=== PATIENT | male | born 1950 | race Caucasian/White ===

== ENCOUNTER 2021-07-03 10:49 | Emergency (ER) | payer OTHER, BC, SELFPAY ==
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
[2021-07-03 10:56] VITALS: BP 157/122; PULSE 94; RESP 16; TEMP 36.4; O2SAT 96
--- NOTE | 2021-07-03 12:01 | PC.NURSE ---
upon arrival to room would not change until voided. No change in appearance since triage.
--- NOTE | 2021-07-03 12:02 | PC.NURSE ---
provider with pt., technical advisor waiting at door for pt.
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
[2021-07-03 12:53] VITALS: BP 140/94; PULSE 84; RESP 22
--- NOTE | 2021-07-03 12:57 | PC.NURSE ---
pt. to xray before could give meds
[2021-07-03] MEDS: ACETAMINOPHEN 500 MG TABLET 1000 MG PO (13:22)
[2021-07-03] MEDS: IBUPROFEN 400 MG TABLET 800 MG PO (13:22)
[2021-07-03] MEDS: TETANUS,DIPHTHERIA,AC PERTUSSIS ADULT (0.5 ML) BOOSTRIX IM (13:48)
[2021-07-03 14:13] LABS: Anion Gap 8 mmol/L (8-16); Blood Urea Nitrogen 18 mg/dL (9-20); Calcium 8.6 mg/dL (8.4-10.2); Carbon Dioxide 27 mmol/L (22-30); Chloride 102 mmol/L (98-107); Estimated CRCL calculation 62 ml/min; Estimated Glomerular Filt Rate > 60; Glucose 105 mg/dL (65-110); Potassium 4.3 mmol/L (3.4-5.0); Sodium 137 mmol/L (137-145)
[2021-07-03] MEDS: methocarbamoL 500 MG TABLET PO (15:20)
[2021-07-03 15:23] VITALS: BP 162/99; PULSE 71; RESP 18; O2SAT 96
== END 2021-07-03 15:27 | disposition home or self-care (01) ==
PROVIDERS: Physician Assistant; Emergency Provider Emergency Medicine; PCP Family Medicine Adolescent Medicine
DX: S09.90XA Unspecified injury of head, initial encounter (principal); S51.812A Laceration without foreign body of left forearm, initial encounter; S19.9XXA Unspecified injury of neck, initial encounter; Z23 Encounter for immunization; K21.9 Gastro-esophageal reflux disease without esophagitis; I10 Essential (primary) hypertension; M17.12 Unilateral primary osteoarthritis, left knee; E78.00 Pure hypercholesterolemia, unspecified; V43.52XA Car driver injured in collision with other type car in traffic accident, initial encounter
CPT/HCPCS: 36415; 70450; 72125; 73010; 73090; 74177; 80048; 90471; 90715; 99284; A9270; L0140; Q9967

== ENCOUNTER → 2022-01-23 08:28 | Outpatient (CLI) | payer BC, SELFPAY ==
--- NOTE | ~2022-01-23 | MR_ITS ---
EXAMINATION: MR knee LT wo con DATE: 01/23/2022 09:07 INDICATION: Left knee pain TECHNIQUE: Magnetic resonance imaging (MRI) of the left knee was performed without intravenous contra st. Sequences included coronal PD-weighted FSE, coronal PD-weighted FS FSE, sagittal T2-weighted FSE , sagittal PD-weighted FS FSE and axial PD weighted fat saturated FSE. COMPARISON: None. FINDINGS: Medial compartment: Complex tear of the body and posterior horn of the medial meniscus. The posterior horn appears small relative to the anterior horn suggesting loss of meniscal tissue which could be due to either prior p artial meniscectomy, degeneration or displacement. 3 hypointense loose bodies the largest measuring 1 2 x 5 mm, 7 x 5 mm and 6 x 4 mm which could represent loose meniscal fragments and which are located in the recess posterior to the posterior horn of the medial meniscus. Deep chondral ulceration with u nderlying subarticular edema-like are signal changes along large portions of the medial tibial platea u and along the weightbearing medial femoral condyle where there are also a few small subarticular cy stlike changes. Lateral compartment: Longitudinal horizontal tear extending to the inferior articular surface at the body of the lateral m eniscus. Fluoroscopy signal change of the cartilage at the medial side of the lateral tibial plateau suggesting a mild partial-thickness fissure. Cartilage in the lateral compartment is otherwise normal . Patellofemoral compartment: Patellar articular cartilage is normal. Deep chondral fissuring with underlying cortical irregularity and edema-like signal change at the trochlear groove and immediately adjacent medial side of the lat eral trochlea. Ligaments and tendons: Anterior and posterior cruciate ligaments are normal. The medial collateral ligament and fibular larissa ateral ligament complex are normal. The extensor mechanism is normal. The visualized medial and later al hamstring tendons as well as the iliotibial band are normal. Fluid: Small left knee joint effusion with mild synovitis at the suprapatellar pouch. Large Foster's cyst francisco j suring 8.0 x 3.0 x 4.4 cm. Osseous/other: Normal marrow signal aside from the previous noted subarticular edema-like signal changes. No fractur e or pathologic marrow replacing process. Prominent subcutaneous varicosities anterior to the proxima l tibia. IMPRESSION: 1. Complex medial meniscal tear. 2. Tricompartmental osteoarthritis, severe with extensive high-grade chondral malacia in the medial c ompartment, mild in the patellofemoral compartment with additional high-grade trochlear chondral jeffrey yaa and minimal in the lateral compartment with possible small region of moderate grade chondromalaci a at the lateral tibial plateau. 3. Large Foster's cyst and small left knee joint effusion. Reviewed, dictated and finalized at location B. 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 Complex medial meniscal tear. 2. Tricompartmental osteoarthritis, severe with extensive high-grade chondral m alacia in the medial compartment, mild in the patellofemoral compartment with a dditional high-grade trochlear chondral malacia and minimal in the lateral comp artment with possible small region of moderate grade chondromalacia at the late ral tibial plateau. 3. Large Foster's cyst and small left knee joint effusion.
== END ==
PROVIDERS: PCP Family Medicine Adolescent Medicine; Visit Provider Orthopaedic Surgery
DX: M17.12 Unilateral primary osteoarthritis, left knee (principal); S83.232A Complex tear of medial meniscus, current injury, left knee, initial encounter; X58.XXXA Exposure to other specified factors, initial encounter; M71.22 Synovial cyst of popliteal space [Baker], left knee; M25.462 Effusion, left knee
CPT/HCPCS: 73721

== ENCOUNTER 2023-01-28 07:54 | Outpatient (CLI) | payer BC, SELFPAY ==
--- NOTE | 2023-01-28 08:40 | ECG_ITS ---
Measurements Intervals [place] Rate: 57 P: 37 KS: 180 QRS: -31 QRSD: 112 T: 14 QT: 414 QTc: 404 Interpretive Statements SINUS BRADYCARDIA LEFT AXIS DEVIATION INCOMPLETE RIGHT BUNDLE BRANCH BLOCK POOR R WAVE PROGRESSION, ANTERIOR LEADS BORDERLINE T WAVE ABNORMALITY- INFERIOR LEADS BASELINE ARTIFACT- I, II, III, AVR, AVL BORDERLINE ECG NO PREVIOUS ECG AVAILABLE FOR COMPARISON Electronically Signed On 01-28-2023 9:26:[address] by Marvin Blanton D.O.
[2023-01-28 09:34] LABS: Basophils Absolute Auto 0.1 K/mm3 (0.0-0.1); Eosinophils Absolute Auto 0.6 K/mm3 (0-0.3); Eosinophils Percent Auto 7.3 % (0-4.4); Hematocrit 51.3 % (42.0-52.0); Hemoglobin 17.1 g/dL (14.0-18.0); Immature Granulocyte Absolute 0.02 K/mm3 (0.00-0.031); Immature Granulocyte Percent A 0.3 % (0-0.5); Lymphocytes Absolute Auto 2.73 K/mm3 (0.9-3.2); Lymphocytes Percent Auto 34.1 % (18.3-44.2); Mean Corpuscular HGB Conc 33.3 g/dl (32-36); Mean Corpuscular Hemoglobin 32.8 pg (26-34); Mean Corpuscular Volume 98.3 fl (80-100); Mean Platelet Volume 10.4 fl (7.4-10.4); Monocytes Percent Auto 12.8 % (2.6-8.5); Neutrophils Absolute Auto 3.6 K/mm3 (1.3-6.7); Neutrophils Percent Auto 44.5 % (45.5-73.1); Platelet Count Result 228 k/mm3 (150-375); Red Blood Count 5.22 M/mm3 (4.6-6.20); Red Cell Distribution Width 12.7 % (11.5-14.5)
[2023-01-28 09:43] LABS: Urine Cotinine NEGATIVE
[2023-01-28 09:43] LABS: Hemoglobin A1C 5.5 % (<5.7)
[2023-01-28 09:49] LABS: Albumin Level 4.6 g/dL (3.5-5.1); Estimated Glomerular Filt Rate > 60; Glucose 103 mg/dL (65-110)
== END 2023-01-28 07:55 | disposition home or self-care (01) ==
LOC: ANHSURGERY 07:58
PROVIDERS: PCP Family Medicine Adolescent Medicine; Visit Provider Orthopaedic Surgery
DX: M17.12 Unilateral primary osteoarthritis, left knee (principal); Z01.818 Encounter for other preprocedural examination; I45.10 Unspecified right bundle-branch block
CPT/HCPCS: 80307; 82040; 82565; 82947; 83036; 85025; 86850; 86900; 86901; 87081; 93005

== ENCOUNTER 2023-02-04 01:43 | Day surgery (SDC) | payer BC, SELFPAY ==
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
[2023-01-28 08:16] VITALS: BP 162/90; PULSE 62; RESP 20; TEMP 36.6; O2SAT 97; BMI 30.3
[2023-02-04] VITALS (15 sets, daily range): BP systolic 123–167; BP diastolic 57–101; PULSE 67–100; RESP 10–25; TEMP 36.3–37; O2SAT 95–100
--- NOTE | ~2023-02-04 | XR_ITS ---
EXAMINATION: XR_[id number]_CR DATE: 02/04/2023 13:25 SENIOR OPERATIONS MANAGER INDICATION: Left total knee arthroplasty TECHNIQUE: 2 views left knee FINDINGS: There is a left total knee arthroplasty in expected position. Subcutaneous gas with fluid and air in the joint are consistent with recent surgery. No evidence of periprosthetic fracture. IMPRESSION: 1. Recent left total knee arthroplasty. Reviewed, dictated and finalized at location B. OR OPERATIONS MANAGER
--- NOTE | 2023-02-04 09:27 | WPDHPUPDATE1 ---
History and Physical Update Update Date/Time: 02/04/23 09:27 History and Physical has been reviewed, including an updated exam of the patient. There are NO changes in the patient's condition. Risks, benefits, and alternatives have been discussed and questions answered. Patient agrees to proceed with procedure.
--- NOTE | 2023-02-04 09:28 | WPDHPUPDATE1 ---
History and Physical Update Update Date/Time: 02/04/23 09:28 History and Physical has been reviewed, including an updated exam of the patient. There are NO changes in the patient's condition. Risks, benefits, and alternatives have been discussed and questions answered. Patient agrees to proceed with procedure.
[2023-02-04] MEDS: ACETAMINOPHEN 500 MG TABLET 1000 MG PO (09:49)
[2023-02-04] MEDS: TRANEXAMIC ACID 1,000MG/ISO100 1,000 MG/100 ML BAG 200 MG IVPB (09:49)
[2023-02-04] MEDS: LACTATED RINGERS 1,000 ML 30 ML IV CONT ×3 (09:50→13:54)
--- NOTE | 2023-02-04 09:55 | WPDANESEPPF ---
Anes - Initial Pre Proc Eval Procedure: Operation Date: 02/04/23 10:30 Proposed Procedures p Left Total Knee Arthroplasty - Luis Fernando Heredia MD Date/Time: 02/04/23 09:55 Surgeon: Luis Fernando Heredia MD Pre Op Diagnosis: oa left knee Patient Data Age: 72 Gender: M Height: 1.68 m Weight: 85.2 kg Last Vital Signs Temp 36.6 C 01/28/23 08:16 Pulse 62 01/28/23 08:16 Resp 20 01/28/23 08:16 BP 162/90 H 01/28/23 08:16 Pulse Ox 97 01/28/23 08:16 O2 Del Method Room Air 01/28/23 08:16 Allergies Allergy/AdvReac Type Severity Reaction Status Date / Time No Known Allergies Allergy Mild Verified 02/04/23 09:42 Home Medications Medication Instructions Recorded Confirmed Type enalapril maleate 20 mg tablet See Rx Instructions .Route 06/12/22 02/04/23 Rx .COMPLEX #90 tabs ezetimibe 10 mg tablet See Rx Instructions .Route 11/04/22 02/04/23 Rx .COMPLEX #90 tabs dexlansoprazole 60 mg 60 mg PO DAILY 01/28/23 02/04/23 History capsule,biphase delayed release (Dexilant) rivaroxaban 10 mg tablet (Xarelto) 10 mg PO DAILY PE prophylaxis s/p 01/30/23 02/04/23 Rx surgery 14 days #14 tabs Patient hx anesthesia problems: none Family hx anesthesia problems: none Results Review: All pre-operative results and documents have been reviewed as part of the pre-operative evaluation. [facility] Past Medical History Medical History (Updated 01/30/23 @ 09:33 by Luis Fernando Heredia MD) Arthritis of left knee Erectile dysfunction GERD (gastroesophageal reflux disease) Helicobacter pylori (H. pylori) Hernia History of Mohs micrographic surgery for skin cancer Hypertension Pure hypercholesterolemia, unspecified Rosacea Surgical History Surgical History History of appendectomy 2007 History of inguinal hernia repair Hx of cholecystectomy Family History Family History Mother Hypertension Cancer Pancreatic adenocarcinoma Father Acute myocardial infarction Cancer Cerebrovascular accident Heart disease Hypertension Son Asthma Social History Social History Smoking status: Never smoker Second hand tobacco smoke exposure: No Additional smoking assessment comments: PT DENIES ALL FORMS OF TOBACCO USE Alcohol intake: current Drinks per week: 2 Alcohol use details: STATES CUTTING BACK PAST YEAR FROM 14/WEEK Substance use: never Substance use type: does not use Lack of Transportation: No Lack of Food: Never True Current Housing: I Have Housing Concerned About Future Housing: No Difficulty Paying Gas/Electric Bills: No Difficulty Paying for Meds: No Currently Unemployed: No Education: Master's Degree or Higher Difficulty w/ Childcare or Family Care: No Living arrangements: alone Occupation/Education: occupation 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 Gender identity (if verbalized by the patient): Male Sexual Orientation (if Verbalized by the Patient): Straight or Heterosexual Spiritual care concerns: No Agree to blood products: Yes Anes - Eval Final PreProcedure Day of Procedure 02/04/23 09:55 Patient weight: obese Heart: regular rate and rhythm Lungs: clear to auscultation Airway: Mallampati scale class II Neurological: alert and oriented Last oral intake: >/= 8 hours ASA classification: III Emergent: no Anesthetic plan: proceed Anesthesia type and monitoring: general LMA and standard monitoring Results Review: All pre-operative results and documents have been reviewed as part of the pre-operative evaluation. Informed Consent: The patient's anesthetic plan and its attendant risks and benefits were discussed with the patient/family/POA. Questions were solicited and answers provided to the satisfaction of the patient/family/POA.
--- NOTE | 2023-02-04 09:59 | WPDANESPNB ---
Anes - Peripheral Nerve Block Date/Time: 02/04/23 09:59 I have discussed with the patient/family/POA the placement of a peripheral nerve block for post-operative pain management, including associated risks, benefits, complications, and side effects. Alternative methods of post-operative analgesia were detailed. Questions were solicited and answers provided to the satisfaction of the patient/family/POA. Time-Out: A pre-procedural Time-Out was completed immediately before starting the procedure and confirmed: Patient Identification, Site, Procedure, Patient Position and the Availability of Requisite Equipment. Clinical Indications: Acute post-operative pain management requested by the operative surgeon. Nerve Block Insertion Note Anes-nerve block: adductor canal left Patient position: supine Skin prep: chlorhexidine Needle: 22 gauge, stimulating, insulated echogenic needle. Needle length: 80 mm Technique: ultrasound Injectate: bupivacaine 0.5% with epi 5 mcg/ml (30cc - no epi) Observations: tolerated well Complications: none Procedure start time:: 958 Procedure end time:: 1001
[2023-02-04] MEDS: ceFAZolin 2 GM/D5W 50 ML 2 GM/50 ML BAG IVPB ×2 (10:14→18:03)
[2023-02-04] MEDS: GENTAMICIN BONE CEMENT REFOBACIN 1 EACH TOPICAL (10:58)
[2023-02-04] MEDS: ceFAZolin SODIUM 1 GM VIAL IV PUSH (12:02)
--- NOTE | 2023-02-04 12:51 | P.OP_ITS ---
Procedure Note - Detailed Date of Procedure 02/04/23 Pre-op Diagnosis oa left knee Post-op Diagnosis Same Procedure Performed Left total knee replacement Surgeon Luis Fernando Heredia MD Street Openings Inspector [facility] Anesthesia General and Regional Description of Procedure The patient was identified and proper site identified. In the preop holding area the anesthesia team performed a left-sided sub sartorial block after which the patient was taken to the operating room and transferred to the OR table po sitioning supine taking care to pad the torso and extremities. After general anesthetic induction and intubation a nonsterile tourniquet was placed high on the left thigh. The left lower extremity was prepped and draped in the usual sterile fashion. The extremity was exsanguinated and with the knee flexed tourniquet was inflated to 300 mmHg remaining up for approximately 80 minutes. An anterior midline incision was made and a modified medial parapatellar approach was used. Infra and suprapatellar fat pads were excised. Patella was resected leaving 15 mm thickness and prepared for the 32 round three peg component. Using the intramedullary guide the distal femur was cut in the proper orientation for the size seven femoral component. Using the extramedullary guide the tibia was cut perpendicular to the long axis protecting collateral ligaments and popliteal structures. It was sized to a seven M. Flexion and extension gaps were balanced. Trial reduction was undertaken and the weight-bearing line was noted to passed through the center of the joint. Proximal tibia was drilled and punched in the proper orientation for the real component. Trial components were removed. The bone surfaces were washed with pulsatile lavage and dried. The real components were cemented simultaneously. The knee was held in extension and the patella held clamped until the cement had cured. Excess cement was removed from the joint. After trialing it was determined that the 12 mm insert gave full range of motion from 0-120 degrees of flexion and the patella tracked in the femoral groove with no lift-off. After final lavage the joint the real 12 insert was secured. A Betadine and saline wash was placed into the wound and allowed to sit for approximately 3 minutes and then evacuated. Periarticular tissues were infiltrated with 60 cc of the arthroplasty solution. Surgicel powder was applied into the wound during the closure. The extensor mechanism was repaired with #2 Vicryl suture and 0 looped PDS suture. Subcu was reapproximated with 3-0 Monocryl, 0 Stratafix and tissue adhesive for the skin. A sterile dressing was applied. He tolerated the procedure well, was awakened and extubated, transferred to the bed and was taken to recovery area in stable condition. There were no known intraoperative complications. Perioperative antibiotics were administered. Estimated Blood Loss 150 Tourniquet Time 80 Drains No Packing No Pathology None sent Complications No immediate complications Condition Stable Disposition PACU [facility] Billing Surgery - Charge Forward: Surgery Billing ([id number])
[2023-02-04] MEDS: fentaNYL CITRATE INJ (*CRX) 100 MCG/2 ML VIAL 25 MCG IV PUSH ×8 (13:16→13:41)
[2023-02-04] MEDS: HYDROmorphone HCL INJ (*CRX) 1 MG/ML SYR 0.5 MG IV PUSH ×6 (13:45→14:43)
[2023-02-04] MEDS: KETOROLAC 15 MG/ML VIAL (*BKC) IV PUSH ×2 (14:15→18:03)
--- NOTE | 2023-02-04 15:00 | ADMGEN ---
This patient, Miguel Roman, was admitted to Medical Room 254-01. Patient/family oriented to hospital policies and general routines including ID bracelet, bed and alarms, visiting hours, pain management, procedures, bathroom and other care routines, personal items, smoking policy, room service/diet, and visiting hours. Information on how to activate the Rapid Response Team has been discussed. Patient/Family are encouraged to report perceived risks to care and to ask questions if they do not understand what they are told or what they should do.
[2023-02-04] MEDS: oxyCODONE/ACETAMINOPHEN (*CRX) 5-325 MG TABLET 1 TABLET PO ×2 (15:26→20:22)
[2023-02-04] MEDS: ENALAPRIL MALEATE 10 MG TABLET BY MOUTH (15:26)
[2023-02-04] MEDS: SENNA/DOCUSATE SODIUM TABLET 2 TAB PO (18:03)
[2023-02-04] MEDS: EZETIMIBE 10 MG TABLET BY MOUTH (18:03)
[2023-02-04] MEDS: FAMOTIDINE 20 MG TABLET PO (20:22)
[2023-02-04] MEDS: oxyCODONE HCL (*CRX) 5 MG TAB IR PO (21:15)
[2023-02-04] MEDS: MORPHINE SULFATE (*CRX) 4 MG/ML INJ 3 MG IV PUSH (22:51)
[2023-02-05] MEDS: oxyCODONE/ACETAMINOPHEN (*CRX) 5-325 MG TABLET 1 TABLET PO ×3 (00:44→08:44)
[2023-02-05] MEDS: KETOROLAC 15 MG/ML VIAL (*BKC) IV PUSH ×2 (00:44→05:01)
[2023-02-05 00:45] VITALS: BP 132/82; PULSE 82; RESP 17; TEMP 36.9; O2SAT 96
[2023-02-05] MEDS: ceFAZolin 2 GM/D5W 50 ML 2 GM/50 ML BAG IVPB ×2 (01:02→10:45)
[2023-02-05 04:39] VITALS: BP 147/90; PULSE 72; RESP 16; TEMP 36.7; O2SAT 99
[2023-02-05] MEDS: oxyCODONE HCL (*CRX) 5 MG TAB IR PO (05:11)
--- NOTE | 2023-02-05 07:48 | PM.DS ---
DS: Admitting Diagnosis Discharge Date February 05, 2023 Admitting Diagnosis Osteoarthritis left knee DS: Discharge Diagnosis Discharge Diagnosis (1) History of total left knee replacement: Onset Date: 01/2023 Code(s): Z96.652 - Presence of left artificial knee joint Status: Acute Plan 72-year-old male one day status post left total knee replacement. Had pain control issues last night but is doing much better today and is wanting to go home. Will be discharged after therapy visits this morning. Surgery discussed in detail with him. Follow-up will be with me in the office in two weeks but was instructed to call with any questions prior. Will do outpatient therapy on his own this we can start formal therapy next week. Has a CPM that he acquired and is going to use that as well. DS: Summary Hospital Course Hospital Course: Following the patient's total knee replacement on February 04, 2023 he was admitted for observation, pain control and to initiate therapy. Had trouble with pain control initially but is doing much better this morning. Moving around comfortably in his room with a walker this morning. Status at Discharge Functional status at discharge: uses cane/walker Overall status at discharge: patient is not back to baseline Time Spent with Patient Time attestation: Total time spent providing and/or coordinating discharge services: Exam Const: General: cooperative, no acute distress and alert Orientation/consciousness: patient oriented x3 HENMT: Head: normal to inspection Resp: Effort & Inspection: normal respiratory effort and able to speak in complete sentences GI: Inspection: other (Nondistended) Neuro: General: patient oriented x3 Cognition (Neuro): normal cognition Speech: normal speech Gait exam (Neuro): Other gait observations present (Walking well with a walker this a.m.) Extrem: Other: Exam of left knee shows full extension achieved actively. Incision dry. Mild swelling and minimal bruising appreciated. Psych: Appearance: grossly normal Mental Status: mental status grossly normal Radiology Reports: Comments: EXAMINATION: [id number]_[id number]_CR DATE: 02/04/2023 13:25 MIS DIRECTOR INDICATION: Left total knee arthroplasty TECHNIQUE: 2 views left knee FINDINGS: There is a left total knee arthroplasty in expected position.? Subcutaneous gas with fluid and air in the joint are consistent with recent surgery. No evidence of periprosthetic fracture. IMPRESSION: 1.? Recent left total knee arthroplasty. Reviewed, dictated and finalized at location B. DIRECTOR Discharge Plan Discharge Patient Disposition: Home, Self-Care Discharge Instructions: 3 times daily for 20 minutes each time, reclining in bed with ice packs over the incision and a pillow underneath the calf of the affected leg, not under the knee. Your wound is glued so it is okay to remove the dressing, get into the shower and get the wound wet in two days. Be sure to read through all the information that came from a my office and the hospital. Most of the answers you will need can be found that material. Call the office with any questions that you cannot find answers to, or concerns you may have. After the Xarelto is completed, start taking one coated 325 mg aspirin daily and do this for four more weeks. Please call [facility] at as soon as possible to arrange for/verify your follow-up appointment to be seen in 2 weeks. Also, call the office with any orthopedic/surgical related questions prior to follow-up. Be sure to get up and move around several times daily but do not overdo it. Take the arthritis formula Tylenol 650 mg tablet on an 8 hour schedule. A good 8 hour schedule is: 6:00 a.m., 2:00 p.m., 10:00 p.m. you may take the prescribed pain medication along with the Tylenol; it
[2023-02-05] MEDS: EZETIMIBE 10 MG TABLET BY MOUTH (08:47)
[2023-02-05] MEDS: RIVAROXABAN 10 MG TABLET PO (08:47)
[2023-02-05] MEDS: SENNA/DOCUSATE SODIUM TABLET 2 TAB PO (08:47)
[2023-02-05] MEDS: polyethylene glycoL 3350 17 GM POWD.PACK PO (08:47)
[2023-02-05] MEDS: PANTOPRAZOLE 40 MG TABLET PO (08:47)
[2023-02-05] MEDS: FAMOTIDINE 20 MG TABLET PO (08:47)
[2023-02-05] MEDS: ENALAPRIL MALEATE 10 MG TABLET BY MOUTH (08:50)
--- NOTE | 2023-02-05 09:20 | WPDANESPN ---
Anes - Prog Note Post-Op Date/Time: 02/05/23 09:20 Cardiovascular status: normal Respiratory status: normal Airway patency: baseline Mental status: baseline Post-Op hydration status: normal Vital Signs: Last Vital Signs Temp 36.7 C 02/05/23 04:39 Pulse 72 02/05/23 04:39 Resp 16 02/05/23 04:39 BP 147/90 H 02/05/23 04:39 Pulse Ox 99 02/05/23 04:39 O2 Del Method Room Air 02/05/23 08:06 O2 Flow Rate 2 02/04/23 14:45 Pain Score (VAS): 10 I/O: Intake & Output 02/04/23 02/05/23 02/05/23 23:59 07:59 15:59 Intake Total 290 500 Output Total 300 Balance 290 200 Post-procedural complaints: other (Patient states severe pain last night in recovery, but states pain is under control this morning) Patient Feedback: Patient satisfied with anesthetic care.
[2023-02-05 09:35] VITALS: BP 114/68; PULSE 66; RESP 16; TEMP 36.4; O2SAT 97
== END 2023-02-05 11:15 | disposition home or self-care (01) ==
LOC: ANHSURGERY 12:46 → ANH2MED 15:01
PROVIDERS: PCP Family Medicine Adolescent Medicine; Visit Provider Orthopaedic Surgery
PROC: (CPT 27447; principal; 2023-02-04 10:30)
DX: M17.12 Unilateral primary osteoarthritis, left knee (principal); K21.9 Gastro-esophageal reflux disease without esophagitis; I10 Essential (primary) hypertension; E78.00 Pure hypercholesterolemia, unspecified; G89.18 Other acute postprocedural pain; E66.9 Obesity, unspecified; Z68.30 Body mass index [BMI] 30.0-30.9, adult; Z79.01 Long term (current) use of anticoagulants; Z90.49 Acquired absence of other specified parts of digestive tract; Z85.828 Personal history of other malignant neoplasm of skin; Z80.0 Family history of malignant neoplasm of digestive organs; Z82.49 Family history of ischemic heart disease and other diseases of the circulatory system
CPT/HCPCS: 64447; 27447; 73560; 97110; 97161; 97165; 97530; 97535; A9270; C1713; J0171; J0690; J1100; J1170; J1885; J2250; J2270; J2405; J2704; J2795; J3010; J7120

== ENCOUNTER 2023-02-06 14:39 | Outpatient (CLI) | payer BC, SELFPAY ==
--- NOTE | ~2023-02-06 | US_ITS ---
EXAMINATION: US venous doppler [facility] DATE: 02/06/2023 15:45 INDICATION: PAIN IN LEFT LEG, OTHER SPECIFIED SOFT TISSUE DISORDERS . TECHNIQUE: Grayscale images without and with compression and Doppler images of the left lower extremi ty veins were obtained. COMPARISON: 04/28/2018; MR knee 01/23/2022 FINDINGS: The left common femoral vein, profunda (deep) femoral vein, femoral vein, popliteal vein, peroneal v ein, posterior tibial veins, gastrocnemius vein, and greater saphenous vein are patent. Foster's cyst with heterogeneous internal echogenicity but no increased peripheral vascular flow. IMPRESSION: Patent left lower extremity veins. No evidence of deep venous thrombosis. Reviewed, dictated and finalized at location K. ERING MACHINE OPERATOR
== END 2023-02-06 14:40 | disposition home or self-care (01) ==
PROVIDERS: PCP Family Medicine Adolescent Medicine; Visit Provider Orthopaedic Surgery
DX: M79.662 Pain in left lower leg (principal)
CPT/HCPCS: 93971

== ENCOUNTER 2023-02-09 12:17 | Inpatient (IN) | payer BC, SELFPAY ==
[2023-02-09] VITALS (10 sets, daily range): BP systolic 138–164; BP diastolic 75–88; PULSE 68–80; RESP 16–20; TEMP 36.3–36.6; O2SAT 95–100; BMI 29.9
--- NOTE | 2023-02-09 13:07 | ED.LOWEXIN ---
HPI - Extremity Injury (Lower) General Chief Complaint: Recheck/Abnormal Lab/Rx Stated Complaint: L knee pain s/p surgery Time Seen by Provider: 02/09/23 13:03 Source: patient Limitations: physical limitation History of Present Illness HPI Narrative: This is a 72 yo male who presents POD #5 from left knee arthroplasty. He has had persistent pain in this extremity. He did not go home on the same day of surgery but rather did spend overnight for persistent pain. He states the nerve block performed during surgery did not provide relief but he was able to ambulate POD #1 after receiving morphine. However, upon arriving home pain has not improved. He had been taking 5mg oxy q4 hours and this was switched to Tapentadol/Nucynta 2.5mg which he took for 2.5 days, ending last night. He denies any fever but he has felt hot and cold. No falls. He has been in contact multiple times with Dr Heredia/Yan's office and underwent DVT study recently which was reported as negative. He is on Xarelto 10mg daily. He has a follow up appointment 02/19/23. He has been trying to ambulate but it is painful. Has been elevating extremity above heart and applying ice. No paresthesias. He initially had some bloody discharge at the surgical site but denies any purulent discharge. Related Data Home Medications Medication Instructions Recorded Confirmed esomeprazole magnesium 40 mg 40 mg PO DAILY 02/09/23 02/09/23 capsule,delayed release Allergies Allergy/AdvReac Type Severity Reaction Status Date / Time No Known Allergies Allergy Mild Verified 02/09/23 12:39 [facility] Past Medical History Medical History (Updated 02/10/23 @ 11:20 by Denise Mccauley MD) Dyslipidemia Erectile dysfunction Gastroesophageal reflux disease Helicobacter pylori (H. pylori) Hypertension Rosacea Surgical History Surgical History (Updated 02/10/23 @ 11:20 by Denise Mccauley MD) History of appendectomy 2007 History of cholecystectomy History of inguinal hernia repair History of Mohs micrographic surgery for skin cancer History of total left knee replacement (01/2023) February 04, 2023 Family History Family History Mother Hypertension Cancer Pancreatic adenocarcinoma Father Acute myocardial infarction Cancer Cerebrovascular accident Heart disease Hypertension Son Asthma Social History Social History (Updated 02/09/23 @ 21:43 by Sabi Castro PA-C) Social History: Surrogate medical decision maker: Juan Roman, son. Code status: Full code. 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 HEAD: Normocephalic, atraumatic. EYES: Non injected or icteric. ENT: Nares clear, no rhinorrhea or epistaxis. NECK: Supple. CHEST: Speaking in full sentences. No respiratory distress. HEART: Regular rate and rhythm. Normal peripheral pulses with palpable DP and cap refill in left foot. ABDOMEN: Soft, nondistended, EXTREMITIES: Left leg edema throughout though in particular at the knee and spreading distally and proximally. Well-healing surgical scar along anterior surface. Blanching erythema throughout though particularly across anterior surface. Pain with passive and active range
[2023-02-09] MEDS: fentaNYL CITRATE INJ (*CRX) 100 MCG/2 ML VIAL 50 MCG IV PUSH (14:15)
[2023-02-09 14:25] LABS: Basophils Absolute Auto 0.1 K/mm3 (0.0-0.1); Basophils Percent Auto 0.6 % (0.2-1.2); Eosinophils Absolute Auto 0.4 K/mm3 (0-0.3); Eosinophils Percent Auto 4.2 % (0-4.4); Hematocrit 32.7 % (42.0-52.0); Hemoglobin 10.7 g/dL (14.0-18.0); Immature Granulocyte Absolute 0.13 K/mm3 (0.00-0.031); Immature Granulocyte Percent A 1.3 % (0-0.5); Lymphocytes Absolute Auto 2.06 K/mm3 (0.9-3.2); Lymphocytes Percent Auto 20.1 % (18.3-44.2); Mean Corpuscular HGB Conc 32.7 g/dl (32-36); Mean Corpuscular Hemoglobin 32.7 pg (26-34); Mean Platelet Volume 9.9 fl (7.4-10.4); Monocytes Absolute Auto 1.7 K/mm3 (0.1-0.6); Monocytes Percent Auto 16.6 % (2.6-8.5); Neutrophils Absolute Auto 5.9 K/mm3 (1.3-6.7); Neutrophils Percent Auto 57.2 % (45.5-73.1); Platelet Count Result 261 k/mm3 (150-375); Red Blood Count 3.27 M/mm3 (4.6-6.20); Red Cell Distribution Width 13.1 % (11.5-14.5); White Blood Count 10.2 K/mm3 (4.5-10.0)
[2023-02-09 14:41] LABS: Alanine Aminotransferase 29 U/L (6-50); Albumin Level 3.7 g/dL (3.5-5.1); Alkaline Phosphatase 78 U/L (38-126); Anion Gap 9 mmol/L (8-16); Aspartate Amino Transferase 27 U/L (17-59); Bilirubin,Total 1.1 mg/dL (0.2-1.3); Blood Urea Nitrogen 19 mg/dL (9-20); CRP 8.3 mg/dL (<1.0); Calcium 8.8 mg/dL (8.4-10.2); Carbon Dioxide 24 mmol/L (22-30); Chloride 104 mmol/L (98-107); Estimated CRCL calculation 66 ml/min; Estimated Glomerular Filt Rate > 60; Glucose 112 mg/dL (65-110); INR 1.3; Potassium 4.2 mmol/L (3.4-5.0); Prothrombin Time 17.2 Seconds (11.1-14.7); Sodium 137 mmol/L (137-145)
[2023-02-09 14:42] LABS: Partial Thromboplastin Time 43.5 SECONDS (22.3-36.8)
[2023-02-09 15:01] LABS: Erythrocyte Sedimentation Rate > 140 mm/hr (0-20)
[2023-02-09] MEDS: ACETAMINOPHEN 500 MG TABLET 1000 MG PO (15:49)
[2023-02-09 15:53] LABS: Appearance Urine Clear (Clear); Bacteria Urine None Seen /hpf; Bilirubin Urine Negative (Negative); Blood Urine Negative (Negative); Color Urine Dark Yellow (Yellow); Glucose Urine UA Negative (Negative); Ketones Urine Negative (Negative); Leukocyte Esterase Ur Negative LEU/UL (Negative); Nitrate Urine Negative (Negative); Non Pathogenic Casts 0-2; Protein Urine Trace mg/dL (Negative); RBC Urine 0-2 /hpf (0-2); Squamous Epithelial Cell Urine None seen /hpf (Few); WBC Urine 0-5 /hpf; pH Urine 6.5 (5.0-9.0)
[2023-02-09 16:06] LABS: Add Urine Microscopic? YES
--- NOTE | 2023-02-09 16:31 | PM.IMHP ---
H&P: HPI History of Present Illness Date/Time: 02/09/23 16:31 Chief Complaint: Left knee pain Narrative: 72-year-old male who is 12 days status post left total knee replacement. He has developed a postoperative hematoma and is quite uncomfortable with this. He is going to be admitted for pain control and then washout of the hematoma after being off of Xarelto for more than 48 hours. He had pretty significant pain control issues starting immediately after the surgery in the recovery room. He appears to have a resistance to narcotics. Review of Systems Constitutional: Constitutional: Reports difficulty sleeping (Secondary to pain in the left knee) Eyes: Eyes: Denies change in vision and Denies loss of vision ENT: Reports Normal hearing present and Denies throat swelling Cardiovascular: Cardiovascular: Denies chest pain and Denies lightheadedness Respiratory: Respiratory: Reports no additional respiratory complaints and Denies cough Gastrointestinal: Gastrointestinal: Reports no additional gastrointestinal complaints and Denies abdominal pain Musculoskeletal: Musculoskeletal: Reports as per HPI Integumentary/Breasts: Skin/Breast: Denies non-healing lesions Neurologic: Reports system reviewed and no additional complaints, except as documented, Reports Normal hearing present, Denies behavioral changes and Denies loss of vision Psychiatric: Psychiatric: Denies behavioral changes Endocrine: Endocrine: Denies change in body appearance Hematologic/Lymphatic: Hematologic/Lymphatic: Denies easy bleeding Allergic/Immunologic: Allergic/Immunologic: Denies urticaria and Denies throat swelling PMFSH Past Medical History Medical History (Updated 02/09/23 @ 16:36 by Luis Fernando Heredia MD) Erectile dysfunction GERD (gastroesophageal reflux disease) Helicobacter pylori (H. pylori) Hernia History of Mohs micrographic surgery for skin cancer Hypertension Postoperative hematoma Pure hypercholesterolemia, unspecified Rosacea Surgical History Surgical History History of appendectomy 2007 History of inguinal hernia repair History of total left knee replacement (01/2023) February 04, 2023 Hx of cholecystectomy Family History Family History Mother Hypertension Cancer Pancreatic adenocarcinoma Father Acute myocardial infarction Cancer Cerebrovascular accident Heart disease Hypertension Son Asthma Social History Social History Smoking status: Never smoker Second hand tobacco smoke exposure: No Additional smoking assessment comments: PT DENIES ALL FORMS OF TOBACCO USE Alcohol intake: current Drinks per week: 2 Alcohol use details: STATES CUTTING BACK PAST YEAR FROM 14/WEEK Substance use: never Substance use type: does not use Lack of Transportation: No Lack of Food: Never True Current Housing: I Have Housing Concerned About Future Housing: No Difficulty Paying Gas/Electric Bills: No Difficulty Paying for Meds: No Currently Unemployed: No Education: Master's Degree or Higher Difficulty w/ Childcare or Family Care: No Living arrangements: alone Occupation/Education: occupation 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
[2023-02-09] MEDS: MORPHINE SULFATE (*CRX) 2 MG/ML INJ IV PUSH ×2 (17:01→20:51)
[2023-02-09] MEDS: DOCUSATE SODIUM 100 MG CAPSULE PO (17:26)
--- NOTE | 2023-02-09 17:43 | PC.NURSE ---
This patient, Miguel Roman, was admitted to Medical Room 341-01. Patient/family oriented to hospital policies and general routines including ID bracelet, bed and alarms, visiting hours, pain management, procedures, bathroom and other care routines, personal items, smoking policy, room service/diet, and visiting hours. Information on how to activate the Rapid Response Team has been discussed. Patient/Family are encouraged to report perceived risks to care and to ask questions if they do not understand what they are told or what they should do.
--- NOTE | 2023-02-09 19:33 | WPDCN ---
Assessment and Plan Assessment and plan (1) Postoperative hematoma: Qualifiers: Procedure type: musculoskeletal Surgical complication system/body Area: musculoskeletal system Qualified Code(s): M96.840 - Postprocedural hematoma of a musculoskeletal structure following a musculoskeletal system procedure Status: Acute Assessment and Plan: Patient is 12 days postop status post left total knee replacement. Xarelto on hold for 48 hours prior to washout. ESR and ESR are high though he is afebrile. Watch for development of fever; consider empiric antibiotics. Management per Dr. Heredia. (2) Normocytic anemia: Code(s): D64.9 - Anemia, unspecified Status: Acute Assessment and Plan: Hemoglobin today 10.7, down from 17.1 on 01/28/2023. Due to a combination of blood loss from surgery and hematoma. Xarelto on hold in anticipation of surgery. Continue to trend. (3) Hypertension: Code(s): I10 - Essential (primary) hypertension Status: Acute Assessment and Plan: Blood pressures were reviewed and they are stable. Continue enalapril 20 mg daily. (4) Gastroesophageal reflux disease: Code(s): K21.9 - Gastro-esophageal reflux disease without esophagitis Status: Acute Assessment and Plan: No acute issues. Continue PPI. Plan Thank you for allowing us to participate in this patient's care. Please do not hesitate to contact us with any questions. HPI Data of Consult Date/Time: 02/09/23 19:30 Requesting Physician: Dr. Luis Fernando Heredia MD Consult Narrative Reason for consult: Medical management Narrative: This is a 72-year-old male who was admitted through the emergency department today for painful postoperative hematoma of the left knee whom the hospitalist service has been consulted for help managing his medical conditions. His medical history is significant for hypertension, dyslipidemia, GERD, and arthritis. He is 12 days status post left total knee replacement per Dr. Heredia and he has been on rivaroxaban for DVT prophylaxis. He reports having difficulties controlling his pain following surgery and within a couple of days he noticed swelling and significant bruising on the posterior aspect of his thigh and into the prepatellar region. The area is very painful even at rest but is much worse with movement and weight-bearing. He denies paresthesias, numbness, tingling of the left leg. No significant calf pain. He denies syncope, syncope, chest pain, pleuritic pain, and shortness of breath. He also denies fever, chills, and sweats. His vital signs have been stable since arrival. Labs were significant for a WBC count of 10.2, hemoglobin 10.7, ESR greater than 140, CRP 8.3. He has developed a postoperative hematoma and he is being admitted for pain control and washout of the hematoma. Review of Systems Review of Systems: Twelve systems were reviewed and are negative except for as per HPI. [facility], [facility] Past Medical History Medical History (Updated 02/09/23 @ 21:43 by Sabi Castro PA-C) Dyslipidemia Erectile dysfunction Gastroesophageal reflux disease Helicobacter pylori (H. pylori) Hypertension Rosacea Surgical History Surgical History (Updated 02/09/23 @ 21:42 by Sabi Castro PA-C) History of appendectomy 2007 History of cholecystectomy History of inguinal hernia repair History of Mohs micrographic surgery for skin cancer History of total left knee replacement (01/2023) February 04, 2023 Family History Family History Mother Hypertension Cancer Pancreatic adenocarcinoma Father Acute myocardial infarction Cancer Cerebrovascular accident Heart disease Hypertension Son Asthma Social History Social History (Updated 02/09/23 @ 21:43 by Sabi Castro PA-C) Social History: Surrogate medical decision maker: Juan Roman, son. Code status
[2023-02-09] MEDS: HYDROcodone/acetaminophen (*CRX) 5-325 MG TABLET 1 TAB PO (22:22)
[2023-02-09] MEDS: HYDROmorphone HCL INJ (*CRX) 1 MG/ML SYR IV PUSH (23:14)
[2023-02-10] MEDS: oxyCODONE HCL (*CRX) 5 MG TAB IR PO ×4 (00:12→20:43)
[2023-02-10 01:00] LABS: Procalcitonin 0.1 ng/mL
[2023-02-10] MEDS: HYDROmorphone HCL INJ (*CRX) 1 MG/ML SYR 0.5 MG IV PUSH ×5 (02:23→20:42)
[2023-02-10 06:20] LABS: Hematocrit 32.5 % (42.0-52.0); Hemoglobin 10.4 g/dL (14.0-18.0); Mean Corpuscular Hemoglobin 32.1 pg (26-34); Mean Corpuscular Volume 100.3 fl (80-100); Mean Platelet Volume 9.8 fl (7.4-10.4); Platelet Count Result 266 k/mm3 (150-375); Red Blood Count 3.24 M/mm3 (4.6-6.20); Red Cell Distribution Width 13.2 % (11.5-14.5); White Blood Count 9.8 K/mm3 (4.5-10.0)
[2023-02-10 06:25] VITALS: BP 150/83; PULSE 74; RESP 18; TEMP 36.7; O2SAT 100
[2023-02-10] MEDS: ENOXAPARIN 30 MG/0.3 ML SYRINGE SUB-Q (07:45)
[2023-02-10] MEDS: DOCUSATE SODIUM 100 MG CAPSULE PO ×2 (07:45→17:21)
[2023-02-10] MEDS: EZETIMIBE 10 MG TABLET BY MOUTH (07:45)
[2023-02-10] MEDS: ENALAPRIL MALEATE 10 MG TABLET BY MOUTH (07:45)
[2023-02-10] MEDS: PANTOPRAZOLE 40 MG TABLET PO (07:49)
--- NOTE | 2023-02-10 09:06 | PM.IMPN ---
Progress Note: A&P Assessment and Plan (1) Postoperative hematoma: Qualifiers: Procedure type: musculoskeletal Surgical complication system/body Area: musculoskeletal system Qualified Code(s): M96.840 - Postprocedural hematoma of a musculoskeletal structure following a musculoskeletal system procedure Status: Acute Assessment and Plan: Patient is 12 days postop status post left total knee replacement. Xarelto on hold for 48 hours prior to washout. ESR and ESR are high though he is afebrile. Watch for development of fever; consider empiric antibiotics. Management per Dr. Heredia. 02/10: Stable. Hemoglobin is 10.4 today. Currently on multimodal pain control regimen with [place], Oxy, and p.r.n. Dilaudid for breakthrough pain. Patient states that the pain is better controlled than when he 1st presented but still significant. Will add on senna and MiraLax for bowel regimen. (2) Normocytic anemia: Code(s): D64.9 - Anemia, unspecified Status: Acute Assessment and Plan: Hemoglobin today 10.7, down from 17.1 on 01/28/2023. Due to a combination of blood loss from surgery and hematoma. Xarelto on hold in anticipation of surgery. Continue to trend. (3) Hypertension: Code(s): I10 - Essential (primary) hypertension Status: Acute Assessment and Plan: Blood pressures were reviewed and they are stable. Continue enalapril 20 mg daily. 02/10: Blood pressures reviewed and they are stable. (4) Gastroesophageal reflux disease: Code(s): K21.9 - Gastro-esophageal reflux disease without esophagitis Status: Acute Assessment and Plan: No acute issues. Continue PPI. Plan Thank you for allowing us to participate in this patient's care. Please do not hesitate to contact us with any questions. Subjective Date/time seen: 02/10/23 09:06 Interval history: HPI obtained from the chart, This is a 72-year-old male who was admitted through the emergency department today for painful postoperative hematoma of the left knee whom the hospitalist service has been consulted for help managing his medical conditions. His medical history is significant for hypertension, dyslipidemia, GERD, and arthritis. He is 12 days status post left total knee replacement per Dr. Heredia and he has been on rivaroxaban for DVT prophylaxis. He reports having difficulties controlling his pain following surgery and within a couple of days he noticed swelling and significant bruising on the posterior aspect of his thigh and into the prepatellar region. The area is very painful even at rest but is much worse with movement and weight-bearing. He denies paresthesias, numbness, tingling of the left leg. No significant calf pain. He denies syncope, syncope, chest pain, pleuritic pain, and shortness of breath. He also denies fever, chills, and sweats. His vital signs have been stable since arrival. Labs were significant for a WBC count of 10.2, hemoglobin 10.7, ESR greater than 140, CRP 8.3. He has developed a postoperative hematoma and he is being admitted for pain control and washout of the hematoma. 02/10: Patient is seen resting in bed. He does not appear in acute distress. His only complaint is that he has continuous pain to his left knee despite adjustments in pain medications. Although he does say that the pain is better with the new regimen of Oxy, [place], and p.r.n. Dilaudid. He has good sensation to bilateral lower extremities is able to move his toes freely. He also states that he has not had a bowel movement for couple of days. Will add on senna and MiraLax today. He is supposed to go for surgery tomorrow pending OR availability. Review of Systems Review of Systems: Twelve systems were reviewed and are negative except for as per HPI. All systems reviewed & are unremarkable except as noted in HPI and below Exam Narrative: General: well appearing, well developed, well
--- NOTE | 2023-02-10 09:10 | PM.PNORT ---
Progress Note: A&P Assessment and Plan (1) Postoperative hematoma: Qualifiers: Surgical complication system/body Area: musculoskeletal system Procedure type: musculoskeletal Qualified Code(s): M96.840 - Postprocedural hematoma of a musculoskeletal structure following a musculoskeletal system procedure Status: Acute (2) History of total left knee replacement: Onset Date: 01/2023 Code(s): Z96.652 - Presence of left artificial knee joint Status: Acute Plan Plan on proceeding with evacuation of hematoma and wound closure tomorrow. Discussed again fully with the patient. We will need to come up with a good outpatient pain regimen for him although I think once the hematoma as out his comfort level will increase significantly. Subjective Subjective Date/Time Seen: 02/10/23 09:10 Interval history: 72-year-old male with a postop hematoma left knee. Plan on going to surgery tomorrow at some point for washout. Pain management issues noted overnight. Appears conversational and comfortable this morning. Exam Const: General: cooperative and no acute distress Resp: Effort & Inspection: normal respiratory effort GI: Inspection: non-distended Extrem: Other: Left knee swollen and bruised. Incision dry. Neurovascular status unremarkable left lower extremity. Calf nontender. Psych: Mental Status: mental status grossly normal Affect: normal affect Objective Data Vital Signs Vital Signs: Vital Signs - 24 hr 02/09/23 12:20 02/09/23 12:31 02/09/23 14:17 Temperature 98 F Pulse Rate 79 79 69 Respiratory Rate 18 17 20 Blood Pressure 150/75 H 151/76 H 162/86 H Pulse Oximetry 98 98 99 Oxygen Delivery Room Air 02/09/23 15:39 02/09/23 15:50 02/09/23 17:04 Temperature Pulse Rate 74 80 76 Respiratory Rate 16 17 17 Blood Pressure 157/78 H 141/83 H 147/88 H Pulse Oximetry 97 100 100 Oxygen Delivery 02/09/23 17:23 02/09/23 18:00 02/09/23 20:00 Temperature 97.4 F L Pulse Rate 77 70 Respiratory Rate 18 18 Blood Pressure 152/87 H 164/82 H Pulse Oximetry 96 100 Oxygen Delivery Room Air 02/09/23 21:25 02/09/23 23:14 02/10/23 06:25 Temperature 97.8 F 97.7 F 98.0 F Pulse Rate 72 68 74 Respiratory Rate 18 18 18 Blood Pressure 156/80 H 138/78 150/83 H Pulse Oximetry 100 95 100 Oxygen Delivery 02/10/23 07:45 Temperature Pulse Rate Respiratory Rate Blood Pressure Pulse Oximetry Oxygen Delivery Room Air Intake/Output Intake/Output: Intake & Output 02/07/23 02/08/23 02/09/23 02/10/23 23:59 23:59 23:59 23:59 Output Total 200 / 200 700 / 700 Balance -200 / -200 -700 / -700 Meds/Results Medications: Active Medications Generic Name Dose Route Start Last Admin Trade Name Freq PRN Reason Stop Dose Admin Acetaminophen 650 mg 02/09/23 16:42 Acetaminophen 325 Mg Tablet PO Q4H PRN Mild Pain (1-3) or Fever Hydrocodone Bitart/Acetaminophen 1 tab 02/09/23 16:42 02/09/23 22:22 Hydrocodone/Acetaminophen (*Crx) 5-325 Mg Tablet PO 1 tab Q4H PRN Administration Moderate Pain (4-6) Bisacodyl 5 mg 02/09/23 16:42 Bisacodyl 5 Mg Tablet Ec PO DAILY PRN Constipation Docusate Sodium 100 mg 02/09/23 17:00 02/10/23 07:45 Docusate Sodium 100 Mg Capsule PO 100 mg BID SILVERIO Administration Ezetimibe 10 mg 02/10/23 09:00 02/10/23 07:45 Ezetimibe 10 Mg Tablet BY MOUTH 10 mg DAILY SILVERIO Administration Enalapril Maleate 10 mg 02/10/23 09:00 02/10/23 07:45 Enalapril Maleate 10 Mg Tablet BY MOUTH 10 mg DAILY SILVERIO Administration Enoxaparin Sodium 30 mg 02/10/23 09:00 02/10/23 07:45 Enoxaparin 30 Mg/0.3 Ml Syringe SUB-Q 02/11/23 08:59 30 mg DAILY SILVERIO Administration Hydromorphone HCl 0.5 mg 02/09/23 23:05 02/10/23 07:45 Hydromorphone Hcl Inj (*Crx) 1 Mg/Ml Syr IV PUSH 0.5 mg Q3H PRN Administration Breakthrough Pain Ondansetron HCl 4 mg 02/09/23 16
[2023-02-10] MEDS: HYDROcodone/acetaminophen (*CRX) 5-325 MG TABLET 1 TAB PO (10:46)
[2023-02-10] MEDS: polyethylene glycoL 3350 17 GM POWD.PACK PO (10:47)
[2023-02-10 15:01] VITALS: BP 130/75; PULSE 73; RESP 16; TEMP 36.4; O2SAT 100
[2023-02-10 19:45] VITALS: BP 127/69; PULSE 81; RESP 18; TEMP 37.2; O2SAT 98
[2023-02-10] MEDS: SENNOSIDES 8.6 MG TABLET PO (20:43)
[2023-02-11] VITALS (12 sets, daily range): BP systolic 141–189; BP diastolic 68–102; PULSE 84–103; RESP 10–20; TEMP 36.3–37.4; O2SAT 93–100
--- NOTE | 2023-02-11 00:07 | PC.NURSE ---
Went to give pain medication as requested. Pt stated I was the most unpleasant nurse hes ever met.
[2023-02-11] MEDS: HYDROmorphone HCL INJ (*CRX) 1 MG/ML SYR 0.5 MG IV PUSH ×4 (05:30→12:13)
[2023-02-11] MEDS: oxyCODONE HCL (*CRX) 5 MG TAB IR PO (05:30)
--- NOTE | 2023-02-11 05:34 | PC.NURSE ---
I took pt his scheduled and PRN med. He was still hateful when I went in said I made him suffer in pain all night. When I gave him his last dose of PRN I told hiwot at that time when his next dose of PRN was due as well as his scheduled.
[2023-02-11 05:58] LABS: Basophils Absolute Auto 0.1 K/mm3 (0.0-0.1); Basophils Percent Auto 0.8 % (0.2-1.2); Eosinophils Absolute Auto 0.4 K/mm3 (0-0.3); Eosinophils Percent Auto 3.7 % (0-4.4); Hematocrit 32.3 % (42.0-52.0); Hemoglobin 10.5 g/dL (14.0-18.0); Immature Granulocyte Absolute 0.18 K/mm3 (0.00-0.031); Immature Granulocyte Percent A 1.8 % (0-0.5); Lymphocytes Absolute Auto 1.87 K/mm3 (0.9-3.2); Lymphocytes Percent Auto 18.9 % (18.3-44.2); Mean Corpuscular HGB Conc 32.5 g/dl (32-36); Mean Corpuscular Hemoglobin 32.4 pg (26-34); Mean Corpuscular Volume 99.7 fl (80-100); Mean Platelet Volume 9.4 fl (7.4-10.4); Monocytes Absolute Auto 1.7 K/mm3 (0.1-0.6); Monocytes Percent Auto 16.8 % (2.6-8.5); Neutrophils Absolute Auto 5.7 K/mm3 (1.3-6.7); Platelet Count Result 322 k/mm3 (150-375); Red Blood Count 3.24 M/mm3 (4.6-6.20); Red Cell Distribution Width 13.2 % (11.5-14.5); White Blood Count 9.9 K/mm3 (4.5-10.0)
[2023-02-11 06:31] LABS: Alanine Aminotransferase 57 U/L (6-50); Albumin Level 3.7 g/dL (3.5-5.1); Alkaline Phosphatase 95 U/L (38-126); Anion Gap 8 mmol/L (8-16); Aspartate Amino Transferase 51 U/L (17-59); Bilirubin,Total 1.4 mg/dL (0.2-1.3); Blood Urea Nitrogen 18 mg/dL (9-20); Calcium 8.6 mg/dL (8.4-10.2); Carbon Dioxide 27 mmol/L (22-30); Chloride 100 mmol/L (98-107); Estimated CRCL calculation 74 ml/min; Estimated Glomerular Filt Rate > 60; Glucose 123 mg/dL (65-110); Potassium 4.2 mmol/L (3.4-5.0); Sodium 135 mmol/L (137-145)
--- NOTE | 2023-02-11 11:21 | PM.IMPN ---
Progress Note: A&P Assessment and Plan (1) Postoperative hematoma: Qualifiers: Surgical complication system/body Area: musculoskeletal system Procedure type: musculoskeletal Qualified Code(s): M96.840 - Postprocedural hematoma of a musculoskeletal structure following a musculoskeletal system procedure Status: Acute Assessment and Plan: Patient is 12 days postop status post left total knee replacement. Xarelto on hold for 48 hours prior to washout. ESR and ESR are high though he is afebrile. Watch for development of fever; consider empiric antibiotics. Management per Dr. Heredia. 02/10: Stable. Hemoglobin is 10.4 today. Currently on multimodal pain control regimen with [place], Oxy, and p.r.n. Dilaudid for breakthrough pain. Patient states that the pain is better controlled than when he 1st presented but still significant. Will add on senna and MiraLax for bowel regimen. 02/11: To OR today for hematoma evacuation per Dr. Heredia (2) Normocytic anemia: Code(s): D64.9 - Anemia, unspecified Status: Acute Assessment and Plan: Hemoglobin today 10.7, down from 17.1 on 01/28/2023. Due to a combination of blood loss from surgery and hematoma. Xarelto on hold in anticipation of surgery. Continue to trend. (3) Hypertension: Code(s): I10 - Essential (primary) hypertension Status: Acute Assessment and Plan: Blood pressures were reviewed and they are stable. Continue enalapril 20 mg daily. 02/11: Blood pressures reviewed and they are stable. (4) Gastroesophageal reflux disease: Code(s): K21.9 - Gastro-esophageal reflux disease without esophagitis Status: Acute Assessment and Plan: No acute issues. Continue PPI. Plan Thank you for allowing us to participate in this patient's care. Please do not hesitate to contact us with any questions. Time Spent With Patient Time with patient: 15 - 25 minutes Subjective Date/time seen: 02/11/23 11:21 Interval history: HPI obtained from the chart, This is a 72-year-old male who was admitted through the emergency department today for painful postoperative hematoma of the left knee whom the hospitalist service has been consulted for help managing his medical conditions. His medical history is significant for hypertension, dyslipidemia, GERD, and arthritis. He is 12 days status post left total knee replacement per Dr. Heredia and he has been on rivaroxaban for DVT prophylaxis. He reports having difficulties controlling his pain following surgery and within a couple of days he noticed swelling and significant bruising on the posterior aspect of his thigh and into the prepatellar region. The area is very painful even at rest but is much worse with movement and weight-bearing. He denies paresthesias, numbness, tingling of the left leg. No significant calf pain. He denies syncope, syncope, chest pain, pleuritic pain, and shortness of breath. He also denies fever, chills, and sweats. His vital signs have been stable since arrival. Labs were significant for a WBC count of 10.2, hemoglobin 10.7, ESR greater than 140, CRP 8.3. He has developed a postoperative hematoma and he is being admitted for pain control and washout of the hematoma. 02/10: Patient is seen resting in bed. He does not appear in acute distress. His only complaint is that he has continuous pain to his left knee despite adjustments in pain medications. Although he does say that the pain is better with the new regimen of Oxy, [place], and p.r.n. Dilaudid. He has good sensation to bilateral lower extremities is able to move his toes freely. He also states that he has not had a bowel movement for couple of days. Will add on senna and MiraLax today. He is supposed to go for surgery tomorrow pending OR availability. 02/11: Patient reports inadequate pain control overnight. He was quite upset with overnight RN. Patient reports left leg bruising and swelling
[2023-02-11] MEDS: LACTATED RINGERS 1,000 ML 30 ML IV CONT ×2 (13:28→16:01)
--- NOTE | 2023-02-11 13:29 | WPDANESEPPF ---
Anes - Initial Pre Proc Eval Procedure: Operation Date: 02/11/23 14:00 Proposed Procedures p Washout Left Knee - Luis Fernando Heredia MD Date/Time: 02/11/23 13:29 Surgeon: Luis Fernando Heredia MD Pre Op Diagnosis: Hematoma left knee Patient Data Age: 72 Gender: M Height: 1.68 m Weight: 84 kg Last Vital Signs Temp 36.8 C 02/11/23 03:51 Pulse 85 02/11/23 03:51 Resp 18 02/11/23 03:51 BP 154/77 H 02/11/23 03:51 Pulse Ox 100 02/11/23 03:51 O2 Del Method Room Air 02/11/23 09:10 Allergies Allergy/AdvReac Type Severity Reaction Status Date / Time No Known Allergies Allergy Mild Verified 02/11/23 13:18 Home Medications Medication Instructions Recorded Confirmed Type enalapril maleate 20 mg tablet See Rx Instructions .Route 06/12/22 02/09/23 Rx .COMPLEX #90 tabs ezetimibe 10 mg tablet See Rx Instructions .Route 11/04/22 02/09/23 Rx .COMPLEX #90 tabs rivaroxaban 10 mg tablet (Xarelto) 10 mg PO DAILY PE prophylaxis s/p 01/30/23 02/09/23 Rx surgery 14 days #14 tabs celecoxib 200 mg capsule (Celebrex) 200 mg PO BID #14 caps 02/05/23 02/09/23 Rx oxycodone 5 mg tablet 5 mg PO Q4H PRN pain #42 tabs 02/05/23 02/09/23 Rx esomeprazole magnesium 40 mg 40 mg PO DAILY 02/09/23 02/09/23 History capsule,delayed release Laboratory Tests 02/11/23 05:22 WBC 9.9 K/mm3 (4.5-10.0) RBC 3.24 L M/mm3 (4.6-6.20) Hgb 10.5 L g/dL (14.0-18.0) Hct 32.3 L % (42.0-52.0) MCV 99.7 fl (80-100) MCH 32.4 pg (26-34) MCHC 32.5 g/dl (32-36) RDW 13.2 % (11.5-14.5) Plt Count 322 k/mm3 (150-375) MPV 9.4 fl (7.4-10.4) Immature Gran % (Auto) 1.8 H % (0-0.5) Neut % (Auto) 58.0 % (45.5-73.1) Lymph % (Auto) 18.9 % (18.3-44.2) [place] % (Auto) 16.8 H % (2.6-8.5) Eos % (Auto) 3.7 % (0-4.4) Baso % (Auto) 0.8 % (0.2-1.2) Lymph # (Auto) 1.87 K/mm3 (0.9-3.2) [place] # (Auto) 1.7 H K/mm3 (0.1-0.6) Eos # (Auto) 0.4 H K/mm3 (0-0.3) Baso # (Auto) 0.1 K/mm3 (0.0-0.1) Abs Immat Gran (auto) 0.18 H K/mm3 (0.00-0.031) Absolute Neuts (auto) 5.7 K/mm3 (1.3-6.7) Absolute Nucleated RBC 0.0 K/mm3 (0.0-0.012) Nucleated RBC % 0.0 % (0.0-0.2) Sodium 135 L mmol/L (137-145) Potassium 4.2 mmol/L (3.4-5.0) Chloride 100 mmol/L (98-107) Carbon Dioxide 27 mmol/L (22-30) Anion Gap 8 mmol/L (8-16) BUN 18 mg/dL (9-20) Creatinine 0.80 mg/dL (0.7-1.3) Estim Creat Clear Calc 74 ml/min Estimated GFR > 60 (59 - ) Glucose 123 H mg/dL (65-110) Calcium 8.6 mg/dL (8.4-10.2) Total Bilirubin 1.4 H mg/dL (0.2-1.3) AST 51 U/L (17-59) ALT 57 H U/L (6-50) Alkaline Phosphatase 95 U/L (38-126) Total Protein 7.0 g/dL (6.3-8.2) Albumin 3.7 g/dL (3.5-5.1) Patient hx anesthesia problems: none Family hx anesthesia problems: none Results Review: All pre-operative results and documents have been reviewed as part of the pre-operative evaluation. [facility] Past Medical History Medical History Dyslipidemia Erectile dysfunction Gastroesophageal reflux disease Helicobacter pylori (H. pylori) Hypertension Rosacea Surgical History Surgical History History of appendectomy 2007 History of cholecystectomy History of inguinal hernia repair History of Mohs micrographic surgery for skin cancer History of total left knee replacement (01/2023) February 04, 2023 Family History Family History Mother Hypertension Cancer Pancreatic adenocarcinoma Father Acute myocardial infarction Cancer Cerebrovascular accident Heart disease Hypertension Son Asthma Social History Social History Social History: [facility]
--- NOTE | 2023-02-11 14:04 | WPDHPUPDATE1 ---
History and Physical Update Update Date/Time: 02/11/23 14:04 History and Physical has been reviewed, including an updated exam of the patient. There are NO changes in the patient's condition. Risks, benefits, and alternatives have been discussed and questions answered. Patient agrees to proceed with procedure.
[2023-02-11] MEDS: ceFAZolin 2 GM/D5W 50 ML 2 GM/50 ML BAG IVPB ×2 (14:26→20:37)
[2023-02-11] MEDS: TRANEXAMIC ACID 1,000 MG/10 ML AMPUL 1000 MG IV PUSH (15:09)
[2023-02-11] MEDS: LIDOCAINE HCL 1% LOCAL INJ 20 ML VIAL 60 ML INFILTRATE (15:26)
[2023-02-11] MEDS: ceFAZolin SODIUM 1 GM VIAL IV PUSH (15:26)
--- NOTE | 2023-02-11 16:25 | P.OP_ITS ---
Procedure Note - Detailed Date of Procedure 02/11/23 Pre-op Diagnosis Hematoma left knee Status post total knee replacement Post-op Diagnosis Same Procedure Performed washout superficial hematoma right knee Surgeon Luis Fernando Heredia MD [employer] [facility] Anesthesia General Description of Procedure the patient was identified and proper site identified. He was taken the operating room and transferred to the OR table placed him supine take care to pad his torso extremities. After general anesthetic induction and intubation a nonsterile tourniquet was placed high on the left thigh but was not used. Left lower extremity was prepped and draped usual sterile fashion. A gentle gabriel pulation was carried out. The knee was be able to be brought into full extension and flex to about 115? quite easily. The glue was removed from the anterior portion of the knee and the incision opened. Subcuticular stitch was removed. There was about a 50 milliliters hematoma in the prepatellar space which was evacuated. The arthrotomy closure was inspected and noted to be tightly closed. There was very little fluid in the knee joint proper. The knee was taken through range of motion and no fluid was expressed through the arthrotomy. The subcutaneous space was cleared of remaining hematoma and then carefully cauterized to minimize the bleeding. The subcutaneous space was washed with a dilute Betadine solution. Surgicel powder was allowed to sit in the prepatellar space under the skin flaps for about 5 minutes then gently irrigated out. 8Th inch Hemovac was left under the skin flaps taking care not to entrap it during the closure. Skin edges reapproximated with 0 Quill and 3-0 nylon interrupted sutures. Mepilex dressing was placed. Drain dressing placed and the whole construct was secured with a double six-inch Alberto. Patient tolerated the procedure well. He was awakened, extubated taken recovery area in stable condition. There were no known intraoperative complications. Estimated blood loss was 50 milliliters which is primarily the evacuated hematoma. Estimated Blood Loss -50.0 Tourniquet Time 0 Urine Output 350 Drains Yes ( 1/8 inch Hemovac in the subcutaneous space) Packing No Pathology None sent Complications No immediate complications Condition Stable Disposition PACU [facility] Billing Surgery - Charge Forward: Surgery Billing ([id number])
[2023-02-11] MEDS: fentaNYL CITRATE INJ (*CRX) 100 MCG/2 ML VIAL 25 MCG IV PUSH ×4 (16:30→16:45)
--- NOTE | 2023-02-11 17:38 | PC.NURSE ---
Patient returned to unit from surgery
[2023-02-11] MEDS: SENNA/DOCUSATE SODIUM TABLET 2 TAB PO (18:16)
[2023-02-11] MEDS: HYDROcodone/acetaminophen (*CRX) 7.5-325 MG TABLET 1 TAB PO (20:30)
[2023-02-11] MEDS: oxyCODONE HCL (*CRX) 5 MG TAB IR 10 MG PO (22:38)
[2023-02-12] VITALS: BP 146/69; PULSE 90; RESP 20; TEMP 36.9; O2SAT 98
[2023-02-12] MEDS: MORPHINE SULFATE (*CRX) 2 MG/ML INJ IV PUSH ×4 (00:15→14:34)
[2023-02-12] MEDS: HYDROcodone/acetaminophen (*CRX) 7.5-325 MG TABLET 1 TAB PO ×6 (00:30→20:28)
[2023-02-12] MEDS: oxyCODONE HCL (*CRX) 5 MG TAB IR 10 MG PO ×3 (03:21→23:00)
[2023-02-12 04:30] VITALS: BP 140/66; PULSE 85; RESP 20; TEMP 36.9; O2SAT 96
[2023-02-12] MEDS: ceFAZolin 2 GM/D5W 50 ML 2 GM/50 ML BAG IVPB ×3 (04:33→21:17)
[2023-02-12 05:53] LABS: Basophils Absolute Auto 0.1 K/mm3 (0.0-0.1); Basophils Percent Auto 0.7 % (0.2-1.2); Eosinophils Absolute Auto 0.4 K/mm3 (0-0.3); Eosinophils Percent Auto 3.6 % (0-4.4); Hematocrit 29.9 % (42.0-52.0); Hemoglobin 9.6 g/dL (14.0-18.0); Immature Granulocyte Absolute 0.14 K/mm3 (0.00-0.031); Immature Granulocyte Percent A 1.3 % (0-0.5); Lymphocytes Absolute Auto 1.88 K/mm3 (0.9-3.2); Lymphocytes Percent Auto 17.8 % (18.3-44.2); Mean Corpuscular HGB Conc 32.1 g/dl (32-36); Mean Corpuscular Hemoglobin 32.4 pg (26-34); Mean Platelet Volume 9.2 fl (7.4-10.4); Monocytes Absolute Auto 2.1 K/mm3 (0.1-0.6); Neutrophils Percent Auto 56.6 % (45.5-73.1); Platelet Count Result 364 k/mm3 (150-375); Red Blood Count 2.96 M/mm3 (4.6-6.20); Red Cell Distribution Width 13.2 % (11.5-14.5); White Blood Count 10.5 K/mm3 (4.5-10.0)
[2023-02-12 06:04] LABS: Potassium 4.1 mmol/L (3.4-5.0)
[2023-02-12 06:09] LABS: Anion Gap 8 mmol/L (8-16); Blood Urea Nitrogen 15 mg/dL (9-20); Calcium 8.3 mg/dL (8.4-10.2); Carbon Dioxide 24 mmol/L (22-30); Chloride 101 mmol/L (98-107); Estimated CRCL calculation 74 ml/min; Estimated Glomerular Filt Rate > 60; Glucose 128 mg/dL (65-110); Sodium 133 mmol/L (137-145)
--- NOTE | 2023-02-12 07:24 | WPDANESPN ---
Anes - Prog Note Post-Op Date/Time: 02/12/23 07:24 Cardiovascular status: normal Respiratory status: normal Airway patency: baseline Mental status: baseline Post-Op hydration status: normal Vital Signs: Last Vital Signs Temp 36.9 C 02/12/23 04:30 Pulse 85 02/12/23 04:30 Resp 20 02/12/23 04:30 BP 140/66 02/12/23 04:30 Pulse Ox 96 02/12/23 04:30 O2 Del Method Room Air 02/11/23 17:15 O2 Flow Rate 8 02/11/23 16:15 Pain Score (VAS): 2 I/O: Intake & Output 02/11/23 02/11/23 02/12/23 15:59 23:59 07:59 Intake Total 50 600 300 Output Total 350 600 750 Balance -300 0 -450 Laboratory Tests 02/12/23 05:16 02/12/23 05:16 02/12/23 05:16 WBC 10.5 H RBC 2.96 L Hgb 9.6 L Hct 29.9 L MCV 101.0 H MCH 32.4 MCHC 32.1 RDW 13.2 Plt Count 364 MPV 9.2 Immature Gran % (Auto) 1.3 H Neut % (Auto) 56.6 Lymph % (Auto) 17.8 L [place] % (Auto) 20.0 H Eos % (Auto) 3.6 Baso % (Auto) 0.7 Lymph # (Auto) 1.88 [place] # (Auto) 2.1 H Eos # (Auto) 0.4 H Baso # (Auto) 0.1 Abs Immat Gran (auto) 0.14 H Absolute Neuts (auto) 6.0 Absolute Nucleated RBC 0.0 Nucleated RBC % 0.0 Sodium 133 L Potassium 4.1 Chloride 101 Carbon Dioxide 24 Anion Gap 8 BUN 15 Creatinine 0.80 Estim Creat Clear Calc 74 Estimated GFR > 60 Glucose 128 H Calcium 8.3 L Post-procedural complaints: none Patient Feedback: Patient satisfied with anesthetic care.
[2023-02-12 08:00] VITALS: BP 117/63; PULSE 72; RESP 18; TEMP 36.2; O2SAT 97
[2023-02-12] MEDS: SENNA/DOCUSATE SODIUM TABLET 2 TAB PO ×2 (08:16→16:38)
[2023-02-12] MEDS: CELECOXIB 200 MG CAPSULE PO ×2 (08:16→16:38)
[2023-02-12] MEDS: DOCUSATE SODIUM 100 MG CAPSULE PO ×2 (08:17→16:38)
[2023-02-12] MEDS: polyethylene glycoL 3350 17 GM POWD.PACK PO (08:18)
[2023-02-12] MEDS: EZETIMIBE 10 MG TABLET BY MOUTH (08:18)
[2023-02-12] MEDS: ENALAPRIL MALEATE 10 MG TABLET BY MOUTH (08:18)
[2023-02-12] MEDS: PANTOPRAZOLE 40 MG TABLET PO (08:18)
--- NOTE | 2023-02-12 09:51 | PM.IMPN ---
Progress Note: A&P Assessment and Plan (1) Postoperative hematoma: Qualifiers: Surgical complication system/body Area: musculoskeletal system Procedure type: musculoskeletal Qualified Code(s): M96.840 - Postprocedural hematoma of a musculoskeletal structure following a musculoskeletal system procedure Status: Acute Assessment and Plan: Patient is 12 days postop status post left total knee replacement. Xarelto on hold for 48 hours prior to washout. ESR and ESR are high though he is afebrile. Watch for development of fever; consider empiric antibiotics. Management per Dr. Heredia. 02/10: Stable. Hemoglobin is 10.4 today. Currently on multimodal pain control regimen with [place], Oxy, and p.r.n. Dilaudid for breakthrough pain. Patient states that the pain is better controlled than when he 1st presented but still significant. Will add on senna and MiraLax for bowel regimen. 02/11: To OR today for hematoma evacuation per Dr. Heredia 02/12: Doing well postop. Minimal drainage from Hemovac drain. Likely to be discharged today by Orthopedics. (2) Normocytic anemia: Code(s): D64.9 - Anemia, unspecified Status: Acute Assessment and Plan: Hemoglobin today 10.7, down from 17.1 on 01/28/2023. Due to a combination of blood loss from surgery and hematoma. Xarelto on hold in anticipation of surgery. Continue to trend. (3) Hypertension: Code(s): I10 - Essential (primary) hypertension Status: Acute Assessment and Plan: Blood pressures were reviewed and they are stable. Continue enalapril 20 mg daily. 02/12: Blood pressures reviewed and they are stable. (4) Gastroesophageal reflux disease: Code(s): K21.9 - Gastro-esophageal reflux disease without esophagitis Status: Acute Assessment and Plan: No acute issues. Continue PPI. Plan Thank you for allowing us to participate in this patient's care. Please do not hesitate to contact us with any questions. Time Spent With Patient Time with patient: 15 - 25 minutes Subjective Date/time seen: 02/12/23 09:51 Interval history: HPI obtained from the chart, This is a 72-year-old male who was admitted through the emergency department today for painful postoperative hematoma of the left knee whom the hospitalist service has been consulted for help managing his medical conditions. His medical history is significant for hypertension, dyslipidemia, GERD, and arthritis. He is 12 days status post left total knee replacement per Dr. Heredia and he has been on rivaroxaban for DVT prophylaxis. He reports having difficulties controlling his pain following surgery and within a couple of days he noticed swelling and significant bruising on the posterior aspect of his thigh and into the prepatellar region. The area is very painful even at rest but is much worse with movement and weight-bearing. He denies paresthesias, numbness, tingling of the left leg. No significant calf pain. He denies syncope, syncope, chest pain, pleuritic pain, and shortness of breath. He also denies fever, chills, and sweats. His vital signs have been stable since arrival. Labs were significant for a WBC count of 10.2, hemoglobin 10.7, ESR greater than 140, CRP 8.3. He has developed a postoperative hematoma and he is being admitted for pain control and washout of the hematoma. 02/10: Patient is seen resting in bed. He does not appear in acute distress. His only complaint is that he has continuous pain to his left knee despite adjustments in pain medications. Although he does say that the pain is better with the new regimen of Oxy, [place], and p.r.n. Dilaudid. He has good sensation to bilateral lower extremities is able to move his toes freely. He also states that he has not had a bowel movement for couple of days. Will add on senna and MiraLax today. He is supposed to go for surgery tomorrow pending OR availability. 02/11: Patient reports inadequate
--- NOTE | 2023-02-12 12:01 | PM.PNORT ---
Progress Note: A&P Assessment and Plan (1) Postoperative hematoma: Qualifiers: Surgical complication system/body Area: musculoskeletal system Procedure type: musculoskeletal Qualified Code(s): M96.840 - Postprocedural hematoma of a musculoskeletal structure following a musculoskeletal system procedure Status: Acute Plan 72-year-old male who is a little over week out from a left total knee replacement. He had washout a superficial hematoma left knee yesterday. Uneventful overnight. We will watch today and likely discharge home tomorrow. Drain removed without incident. Plan follow-up in the office in one week for dressing change. Subjective Subjective Date/Time Seen: 02/12/23 12:01 Post Op day: 1 Interval history: Postop day one status post washout postoperative hematoma left knee replacement. Uneventful overnight. Pain appears to be well controlled with the regimen. Virtually no drainage from the Hemovac. Exam Const: General: cooperative and no acute distress Resp: Effort & Inspection: normal respiratory effort GI: Inspection: non-distended Extrem: Other: Right knee dressing dry. Drain removed without incident. Drain site dressed with gauze. Alberto bandage left in place. Grossly motor and sensory function unremarkable left lower extremity Objective Data Vital Signs Vital Signs: Vital Signs - 24 hr 02/11/23 14:14 02/11/23 16:01 02/11/23 16:15 Temperature 98.1 F 97.4 F L Pulse Rate 84 92 90 Respiratory Rate 16 10 L 14 Blood Pressure 146/78 H 164/89 H 189/102 H Pulse Oximetry 99 100 100 Oxygen Delivery Room Air Simple Face Mask Simple Face Mask Oxygen Flow Rate 8 8 02/11/23 16:30 02/11/23 16:45 02/11/23 17:00 Temperature Pulse Rate 95 99 98 Respiratory Rate 18 16 20 Blood Pressure 180/102 H 161/88 H 145/77 H Pulse Oximetry 96 96 95 Oxygen Delivery Room Air Room Air Room Air Oxygen Flow Rate 02/11/23 17:15 02/11/23 18:00 02/11/23 18:15 Temperature 98.7 F 99.2 F Pulse Rate 100 94 102 H Respiratory Rate 14 14 16 Blood Pressure 145/77 H 141/68 H 146/74 H Pulse Oximetry 100 93 97 Oxygen Delivery Room Air Oxygen Flow Rate 02/11/23 18:45 02/11/23 20:10 02/12/23 00:00 Temperature 98.8 F 99.4 F 98.5 F Pulse Rate 97 103 H 90 Respiratory Rate 18 20 20 Blood Pressure 157/77 H 159/80 H 146/69 H Pulse Oximetry 100 97 98 Oxygen Delivery Oxygen Flow Rate 02/12/23 04:30 02/12/23 08:00 02/12/23 10:16 Temperature 98.4 F 97.1 F L Pulse Rate 85 72 Respiratory Rate 20 18 Blood Pressure 140/66 117/63 Pulse Oximetry 96 97 Oxygen Delivery Room Air Oxygen Flow Rate 02/12/23 08:00 Temperature Pulse Rate Respiratory Rate Blood Pressure Pulse Oximetry Oxygen Delivery Room Air Oxygen Flow Rate Intake/Output Intake/Output: Intake & Output 02/09/23 02/10/23 02/11/23 02/12/23 23:59 23:59 23:59 23:59 Intake Total 1270 / 1270 900 / 900 540 / 540 Output Total 200 / 200 1100 / 1100 1175 / 1175 800 / 800 Balance -200 / -200 170 / 170 -275 / -275 -260 / -260 Meds/Results Medications: Active Medications Generic Name Dose Route Start Last Admin Trade Name Freq PRN Reason Stop Dose Admin Hydrocodone Bitart/Acetaminophen 1 tab 02/12/23 09:00 02/12/23 08:18 Hydrocodone/Acetaminophen (*Crx) 7.5-325 Mg Tablet PO 1 tab Q4HR SILVERIO Administration Bisacodyl 5 mg 02/09/23 16:42 Bisacodyl 5 Mg Tablet Ec PO DAILY PRN Constipation Bisacodyl 10 mg 02/11/23 17:18 Bisacodyl 10 Mg Suppository RECTAL DAILY PRN Constipation Celecoxib 200 mg 02/12/23 09:00 02/12/23 08:16 Celecoxib 200 Mg Capsule PO 200 mg BID SILVERIO Administration Cyclobenzaprine HCl 10 mg 02/11/23 17:18 Cyclobenzaprine Hcl 10 Mg Tablet PO Q8H PRN Spasms Diphenhydramine HCl 25 mg 02/11/23 17:18 Diphenhydramine Hcl Inj 50 Mg/Ml Vial IV PUSH Q6H PRN Itching Docusate Sodium 100 mg 12
[2023-02-12 14:17] VITALS: BP 117/63; PULSE 72; RESP 18; TEMP 36.2; O2SAT 97
[2023-02-12] MEDS: RIVAROXABAN 10 MG TABLET PO (16:43)
[2023-02-12 22:08] VITALS: BP 126/65; PULSE 75; RESP 19; TEMP 36.3; O2SAT 97
[2023-02-13] MEDS: HYDROcodone/acetaminophen (*CRX) 7.5-325 MG TABLET 1 TAB PO ×3 (00:32→08:32)
[2023-02-13] MEDS: oxyCODONE HCL (*CRX) 5 MG TAB IR 10 MG PO ×2 (03:00→06:57)
[2023-02-13] MEDS: ceFAZolin 2 GM/D5W 50 ML 2 GM/50 ML BAG IVPB (04:31)
[2023-02-13 06:15] VITALS: BP 126/78; PULSE 72; RESP 19; TEMP 36.4; O2SAT 98
--- NOTE | 2023-02-13 08:01 | PM.DS ---
DS: Admitting Diagnosis Discharge Date February 13, 2023 Admitting Diagnosis postop hematoma left knee DS: Discharge Diagnosis Discharge Diagnosis (1) Postoperative hematoma: Qualifiers: Surgical complication system/body Area: musculoskeletal system Procedure type: musculoskeletal Qualified Code(s): M96.840 - Postprocedural hematoma of a musculoskeletal structure following a musculoskeletal system procedure Status: Acute Plan 72-year-old male who is postop day two status post washout superficial hematoma left knee. Overall doing very well. Pain is much better controlled. Plan discharge home today. Follow-up will be in one week for wound check. He will continue with therapy. Plan on having him on Xarelto for two weeks followed by aspirin for another four weeks. DS: Summary Hospital Course Hospital Course: Patient was admitted on February 09, 2023. Blood thinners were held and on February 11, 2023 he was taken to the operating room for washout of superficial left knee wound hematoma. Drain was placed and was removed on postop day one. Patient did well and is being discharged home on postop day two. Hospitalist service consulted. No additional recommendations. Status at Discharge Functional status at discharge: uses cane/walker Overall status at discharge: patient is not back to baseline Time Spent with Patient Time attestation: Total time spent providing and/or coordinating discharge services: Exam Const: General: cooperative, no acute distress and alert Orientation/consciousness: patient oriented x3 HENMT: Head: normal to inspection Chest: Chest palpation & inspection: normal inspection of the chest Resp: Effort & Inspection: normal respiratory effort and able to speak in complete sentences GI: Inspection: non-distended Neuro: General: patient oriented x3 Cognition (Neuro): normal cognition Speech: normal speech Extrem: General: abnormal to inspection Other: Exam of Left lower extremity reveals extensive resolving bruising. Wound is dry. Drain hole site sealed over. Able to be brought to 0? of extension passively. Can do a straight leg raise with only a minimal lag. Neurovascular status unremarkable left lower extremity. Calves negative. Psych: Appearance: grossly normal Mental Status: mental status grossly normal DS: Data Data Completed and Pending Labs on day of discharge: Preliminary micro results at discharge 02/09/23 23:38 Blood Culture - Preliminary Blood 02/09/23 23:39 Blood Culture - Preliminary Blood Discharge Plan Discharge Attending physician on discharge: Luis Fernando Heredia Consulting providers: Sabi Castro Discharging Clinician: Luis Fernando Heredia Anticipated Discharge Date/Time: 02/13/23 12:00 Patient Disposition: Home, Self-Care Activity: other - see discharge instructions Diet: regular Wound Care Instructions: follow printed instructions Discharge Instructions: 3 times daily for 20 minutes each time, reclining in bed with ice packs over the incision and a pillow underneath the calf of the affected leg, not under the knee. The dressing should be left in place. It is okay to shower with the dressing on. I will see you in the office next week to change your dressing. Bring the extra one with you from the hospital. Be sure to read through all the information that came from a my office and the hospital. Most of the answers you will need can be found that material. Call the office with any questions that you cannot find answers to, or concerns you may have. After the Xarelto is completed, start taking one coated 325 mg aspirin daily and do this for four more weeks. Please call [facility] at as soon as possible to arrange for/verify your follow-up appointment to be seen in 2 weeks. Also, call the office with any orthopedic/surgical related questions prior to follow-up. Be sure to get up and mov
[2023-02-13] MEDS: PANTOPRAZOLE 40 MG TABLET PO (08:32)
[2023-02-13] MEDS: SENNA/DOCUSATE SODIUM TABLET 2 TAB PO (08:32)
[2023-02-13] MEDS: EZETIMIBE 10 MG TABLET BY MOUTH (08:32)
[2023-02-13] MEDS: DOCUSATE SODIUM 100 MG CAPSULE PO (08:32)
[2023-02-13] MEDS: CELECOXIB 200 MG CAPSULE PO (08:32)
[2023-02-13] MEDS: ENALAPRIL MALEATE 10 MG TABLET BY MOUTH (08:32)
[2023-02-13] MEDS: polyethylene glycoL 3350 17 GM POWD.PACK PO (08:33)
== END 2023-02-13 10:40 | disposition home or self-care (01) | DRG 908 ==
LOC: ANHED 13:17 → ANH3MED 17:07
PROVIDERS: Nurse Practitioner Acute Care; Physician Assistant; Admitting Provider Orthopaedic Surgery; Emergency Provider Student in an Organized Health Care Education/Training Program; PCP Family Medicine Adolescent Medicine; Visit Provider Orthopaedic Surgery
PROC: 0JCP0ZZ Extirpation of Matter from Left Lower Leg Subcutaneous Tissue and Fascia, Open Approach (ICD-10-PCS; CPT 27447; principal; 2023-02-11 14:00)
DX: M96.840 Postprocedural hematoma of a musculoskeletal structure following a musculoskeletal system procedure (principal); D62 Acute posthemorrhagic anemia; E78.5 Hyperlipidemia, unspecified; K21.9 Gastro-esophageal reflux disease without esophagitis; I10 Essential (primary) hypertension; Z96.652 Presence of left artificial knee joint; Z79.01 Long term (current) use of anticoagulants
CPT/HCPCS: 36415; 80048; 80053; 81001; 84145; 85025; 85027; 85610; 85652; 85730; 86140; 87040; 96374; 96375; 96376; 97110; 97161; 97165; 97530; 97535; 99285; A9270; G0378; J0690; J1100; J1170; J1650; J2250; J2270; J2405; J2704; J3010; J7120